=== PATIENT | male | born 1960 | race Caucasian/White ===

== ENCOUNTER 2022-05-04 00:14 | Emergency (ER) | payer OTHER ==
[2022-05-04 00:36] VITALS: BP 145/99
--- NOTE | 2022-05-04 00:36 | ED General ---
General Chief Complaint: General Problems/Pain Stated Complaint: [facility]PC CLEAANCE/LOOD DRAW Nursing Triage Note: Pt brought in by [facility]'s department for a medical clearance. Source of Information: Patient Exam Limitations: No Limitations History of Present Illness Date Seen by Provider: May 04, 2022 Time Seen by Provider: 00:20 Initial Comments 62-year-old male with past medical history of hypertension and colon cancer com ing in via the [facility] after he was arrested for a DUI for medical clearance to go to shelter. The patient denies any acute complaints at this time to me including no pain anywhere. Allergies and Home Medications Allergies Coded Allergies: No Known Drug Allergies (Unverified , 05/04/22) Patient Home Medication List Home Medication List Reviewed: Yes Review of Systems Review of Systems Constitutional: No fever EENTM: no symptoms reported Respiratory: no symptoms reported Cardiovascular: no symptoms reported Gastrointestinal: no symptoms reported Genitourinary: no symptoms reported Musculoskeletal: no symptoms reported Skin: no symptoms reported Psychiatric/Neurological: No Symptoms Reported Hematologic/Lymphatic: No Symptoms Reported Past Pbirukz-Qksfyh-Cnmoup Hx Patient Social History Tobacco Use?: Yes Tobacco type used: Cigarettes Alcohol Use?: Yes Physical Exam Vital Signs Vital Signs - First Documented 05/04/22 00:23 Pulse 76 Resp 18 B/P (MAP) 145/99 (114) Pulse Ox 100 O2 Delivery Room Air Capillary Refill : Less Than 3 Seconds Height, Weight, BMI Height: '" Weight: lbs. oz. kg; BMI Method: General Appearance: No Apparent Distress, WD/WN Eyes: Bilateral Eye Normal Inspection HEENT: PERRL/EOMI, Normal ENT Inspection, Pharynx Normal Neck: Full Range of Motion, Normal Inspection, Non Tender, Supple Respiratory: Chest Non Tender, Lungs Clear, Normal Breath Sounds, No Accessory Muscle Use, No Respiratory Distress Cardiovascular: Regular Rate, Rhythm, No Edema, Normal Peripheral Pulses Gastrointestinal: Normal Bowel Sounds, Non Tender, Soft; No Distended, No Guarding Back: Normal Inspection, No CVA Tenderness, No Vertebral Tenderness Extremity: Normal Capillary Refill, Normal Inspection, Normal Range of Motion, Non Tender, No Calf Tenderness, No Pedal Edema Neurologic/Psychiatric: Alert, Oriented x3, No Motor/Sensory Deficits, Normal 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 ABCs were intact, vital stable, neuro exam intact, otherwise no acute complaints. Has a small abrasion to the bridge of his nose where he states he fell a few days ago tripping. Did not pass out, remembers all events, no cervical spine pain, normal motion of his neck, no pain anywhere else. He is answering questions appropriately, vitals unconcerning, and he would be appropriate to be monitored in shelter. He was then discharged in stable condition. Departure Impression Primary Impression: Alcohol intoxication Qualified Codes: F10.920 - Alcohol use, unspecified with intoxication, uncomplicated Disposition: [address]/LAW ENFORCE Condition: Stable Departure-Patient Inst. Decision time for Depature: 00:40 Referrals: NO,LOCAL PHYSICIAN (PCP/Family) Primary Care Physician Patient Instructions: Alcohol Use Disorder ED Add. Discharge Instructions: Please follow-up with your regular doctor if you have any concerns. Work/School Note: Work Release Form Date Seen in the Emergency Department: May 04, 2022 Return to Work: May 05, 2022 Restrictions: No Restrictions KAYCEE GREENWOOD MD May 04, 2022 00:36
== END 2022-05-04 00:39 ==
LOC: ER FS 00:21
DX: S00.31XA Abrasion of nose, initial encounter (principal); F10.229 Alcohol dependence with intoxication, unspecified; F17.210 Nicotine dependence, cigarettes, uncomplicated; Z28.310 Unvaccinated for COVID-19; W01.0XXA Fall on same level from slipping, tripping and stumbling without subsequent striking against object, initial encounter
CPT/HCPCS: 99281